=== PATIENT | female | born 1975 | race Caucasian/White ===

== ENCOUNTER 2016-07-22 09:16 | Emergency (ER) | payer MEDICAID ==
[~2016-07-22] VITALS: Ht 154.9 cm; Wt 73.5 kg
[2016-07-22 09:21] VITALS: Ht 154.9 cm; Wt 73.5 kg
[2016-07-22] MEDS ORDERED: ACETAMINOPHEN 500 MG TAB PO STA (10:08)
[2016-07-22 10:45] LABS: ADD UMIC NO; URINE BILIRUBIN (Dip) NEGATIVE (NEGATIVE); URINE BLOOD (Dip) NEGATIVE (NEGATIVE); URINE COLOR LT. YELLOW (YELLOW); URINE GLUCOSE (Dip) NEGATIVE (NEGATIVE); URINE KETONES (Dip) NEGATIVE (NEGATIVE); URINE LEUKOCYTE ESTERASE (Dip) NEGATIVE (NEGATIVE); URINE NITRITE (Dip) NEGATIVE (NEGATIVE); URINE TOTAL PROTEIN (Dip) NEGATIVE (NEGATIVE); URINE UROBILINOGEN (Dip) 0.2 E.U./dL (0.1-1.0)
[2016-07-22 10:48] LABS: ALBUMIN 4.5 g/dl (3.3-4.9); BASOPHILS % 0.1 % (0.0-2.0); CHLORIDE 101 mmol/L (97-110); EOSINOPHILS % 0.3 % (0.0-7.0); HEMATOCRIT 36.4 % (37.0-47.0); HEMOGLOBIN 12.3 g/dl (12.0-16.0); LYMPHOCYTES # 1.8 10^3/ul (0.8-2.9); LYMPHOCYTES % 15.5 % (15.0-51.0); MEAN CORPUSCULAR HEMOGLOBIN 30.2 pg (29.0-33.0); MEAN CORPUSCULAR HGB CONC 33.9 g/dl (32.0-37.0); MEAN PLATELET VOLUME 8.6 fl (7.4-10.4); MONOCYTE # 0.8 10^3/ul (0.3-0.9); NEUTROPHIL # 8.9 10^3/ul (1.6-7.5); NEUTROPHILS % 77.1 % (39.0-77.0); PLATELET COUNT 365 10^3/UL (140-440); RED BLOOD COUNT 4.09 10^6/ul (4.20-5.40); RED CELL DISTRIBUTION WIDTH 13.6 % (11.5-14.5); UNCORRECTED WBC 11.5 10^3/ul (4.8-10.8); WHITE BLOOD COUNT 11.5 10^3/ul (4.8-10.8)
[2016-07-22 10:49] LABS: POTASSIUM 4.4 mmol/L (3.5-5.1); SODIUM 145 mmol/L (135-144)
[2016-07-22 10:51] LABS: ALANINE AMINOTRANSFERASE 24 IU/L (13-69); ALBUMIN/GLOBULIN RATIO 1.21; ALKALINE PHOSPHATASE 126 IU/L (42-121); ANION GAP 19 (8-16); ASPARTATE AMINO TRANSFERASE 23 IU/L (15-46); BILIRUBIN,INDIRECT 0.1 mg/dl (0-1.1); BILIRUBIN,TOTAL 0.1 mg/dl (0.2-1.3); BLOOD UREA NITROGEN 11 mg/dl (7-20); CARBON DIOXIDE 29 mmol/L (21-31); CREATININE 0.57 mg/dl (0.44-1.00); GLUCOSE 127 mg/dl (70-220); TOTAL PROTEIN 8.2 g/dl (6.1-8.1)
[2016-07-22 10:52] LABS: CALCIUM 9.6 mg/dl (8.4-10.2)
[2016-07-22 11:00] LABS: CONDITION 1
[2016-07-22 11:06] LABS: TROPONIN-I < 0.010 ng/ml (0.00-0.12)
--- NOTE | 2016-07-22 11:16 | RADRPT ---
PROCEDURE: XR Chest AP portable CLINICAL INDICATION: Abdominal pain TECHNIQUE: An AP portable radiograph of the chest was submitted. COMPARISON: None. FINDINGS: Support Hardware: None Cardiovascular: The cardiovascular silhouette appears unremarkable. Lung Ayala: The lung ayala appear clear with no nodule, alveolar infiltrate, for a interstitial pr ominence evident. Pleural Spaces: No pneumothorax or pleural effusion is identified. Osseous Structures: The osseous structures appear intact. Soft Tissues: The soft tissues appear generous. IMPRESSION: Unremarkable portable chest. Physician Leeanne Date Time Electronically viewed and signed by Suhail Trivedi Physician on 07/22/2016 11:15 RH/
--- NOTE | 2016-07-22 11:33 | ERD ---
ER Documentation Chief Complaint Date/Time DATE: 07/22/16 TIME: 1007 Chief Complaint CP and side pain X 2 days. HPI 41-year-old female presents to the emergency department with her family for evaluation of chest and abdominal pain. Patient is a limited historian as she is nonverbal at baseline. According to her sister, she has been having some uncertain discomfort about the abdomen and the chest for the last 2 days. The pain is very poorly described as the patient is unable to describe what is hurting her. According to the sister, she has had no shortness of breath, change in activity level, nausea vomiting diarrhea fevers or any other complaints. ROS All systems reviewed and are negative except as per history of present illness. PMhx/Soc History of Surgery: No Anesthesia Reaction: No Hx Neurological Disorder: Yes (mental retardation) Hx Respiratory Disorders: No Hx Cardiac Disorders: No Hx Psychiatric Problems: No Hx Miscellaneous Medical Probl: No Hx Alcohol Use: No Hx Substance Use: No Hx Tobacco Use: No FmHx Noncontributory for chief complaint with supportive sister at the bedside Physical Exam Vitals Vital Signs Date Time Temp Pulse Resp B/P Pulse Ox O2 Delivery O2 Flow Rate FiO2 07/22/16 09:21 98.2 131 18 157/81 99 Physical Exam GENERAL: The patient is well developed and appropriate for usual state of health in no apparent distress HEENT: Pupils equal, round, and reactive to light. EOMI. There is no scleral icterus. NECK: C-spine is soft and supple, there is no meningismus. There is no cervical lymphadenopathy. LUNGS: Clear to auscultation bilaterally. There are no rales, wheezes or rhonchi. HEART: Regular rate and rhythm, no murmurs, clicks, rubs or gallops. ABDOMEN: Soft, non-tender, non-distended. There are bowel sounds in all four quadrants. No rebound or guarding. EXTREMITIES: There is no peripheral cyanosis or edema. No focal swelling or erythema. NEURO: The patient moves all four extremities with 5/5 strength. Cranial nerves II - XII are intact. Normal gait. Alert and oriented, but nonverbal SKIN: There is no apparent rash or petechiae. HEME/LYMPHATIC: There is no evidence of excessive bruising or lymphedema. PSYCHIATRIC: The patient does not appear anxious or depressed. Result Diagram: 07/22/16 1020 07/22/16 1020 Results 24 hrs Laboratory Tests Test 07/22/16 10:20 07/22/16 10:27 Alanine Aminotransferase (ALT/SGPT) 24IU/L Albumin 4.5g/dl Albumin/Globulin Ratio 1.21 Alkaline Phosphatase 126IU/L Anion Gap 19 Aspartate Amino Transf (AST/SGOT) 23IU/L Basophils # 0.010^3/ul Basophils % 0.1% Blood Urea Nitrogen 11mg/dl Calcium Level 9.6mg/dl Carbon Dioxide Level 29mmol/L Chloride Level 101mmol/L Creatinine 0.57mg/dl Direct Bilirubin 0.00mg/dl Eosinophils # 0.010^3/ul Eosinophils % 0.3% Globulin 3.70g/dl Glucose Level 127mg/dl Hematocrit 36.4% Hemoglobin 12.3g/dl Indirect Bilirubin 0.1mg/dl Lipase 68U/L Lymphocytes # 1.810^3/ul Lymphocytes % 15.5% Mean Corpuscular Hemoglobin 30.2pg Mean Corpuscular Hemoglobin Concent 33.9g/dl Mean Corpuscular Volume 89.0fl Mean Platelet Volume 8.6fl Monocytes # 0.810^3/ul Monocytes % 7.0% Neutrophils # 8.910^3/ul Neutrophils % 77.1% Nucleated Red Blood Cells # 0.010^3/ul Nucleated Red Blood Cells % 0.0/100WBC Platelet Count 53023^3/UL Potassium Level 4.4mmol/L Red Blood Count 4.0910^6/ul Red Cell Distribution Width 13.6% Sodium Level 145mmol/L Total Bilirubin 0.1mg/dl Total Protein 8.2g/dl Troponin I < 0.010ng/ml White Blood Count 11.510^3/ul Urine Bilirubin NEGATIVE Urine Clarity CLEAR Urine Color LT. YELLOW Urine Glucose NEGATIVE% Urine Hemoglobin NEGATIVE Urine Ketones NEGATIVE Urine Leukocyte Esterase NEGATIVE Urine Nitrite NEGATIVE Urine Specific [place] 1.020 Urine Total Protein NEGATIVE Urine Urobilinogen 0.2 E.U./dL Urine pH 8.0 Current Medications Medications (Trade) Dose Ordered Sig/Marlyn Route PRN Reason Start Time Stop Time Status Last Admin Dose Admin Acetaminophen (Tylenol Tab) 1,000 mg ONCE STAT PO 07/22/16 10:08 07/22/16 10:09 DC 07/22/16 10:16 Procedures/MDM Patient was taken to a room, seen and evaluated. Comfort measures were initiated. Diagnostic tests were ordered and reviewed. 3 LEAD RHYTHM STRIP: Normal sinus rhythm without ectopy EK lead EKG reviewed by myself: Normal Sinus Rhythm Normal [place] and intervals No ST elevation, depression, or T wave inversion Impression: Normal EKG RADIOLOGY: reviewed with the radiologist REEVALUATION: Patient remained comfortable and well-appearing MEDICAL DECISION MAKIN-year-old female nonverbal patient presents to the emergency department with questionable chest and abdominal pain of uncertain etiology. At this time, patient has no evidence of acute cardiac disease, infection, appendicitis or other high-risk intra-abdominal issues. She has a benign abdominal examination with low risk lab tests. She overall appears to be clinically well and appears to be appropriate for outpatient care. Departure Diagnosis: Primary Impression: Chest pain Condition: Stable Patient Instructions: Chest Pain, Uncertain Cause Additional Instructions: See your doctor for follow-up as discussed. Take a copy of your test results, if appropriate, to this follow-up visit. See your doctor or return here if your symptoms do not improve as expected. At any time, please return to the emergency department for any change or worsening in her symptoms. AMANDA RICHARDS Jul 22, 2016 11:32
== END 2016-07-22 11:38 | disposition home or self-care (01) ==
LOC: FTE 09:16
DX: R07.9 Chest pain, unspecified (principal)
CPT/HCPCS: 36415; 71010; 80053; 81003; 83690; 84484; 85025; 93005; Z7502; Z7610

== ENCOUNTER 2018-09-10 14:35 | Emergency (ER) | payer SELFPAY ==
[~2018-09-10] VITALS: Wt 69.5 kg
[2018-09-10] MEDS ORDERED: KETOROLAC 15 MG INJ IM STA (15:28)
--- NOTE | 2018-09-10 17:49 | ERD ---
ER Documentation Chief Complaint Chief Complaint LEFT FLANK PAIN X 3 DAYS HPI This is a 43-year-old female presents for bloating, and left-sided flank pain for the last 3 days, which is described as intermittent. The patient was born mute, and presents with family, majority of history was obtained from them, patient has not had a fever, no dysuria, she has never had sexual intercourse, she has no history of pregnancies, no history of STDs. Patient denies chest pain or shortness of breath ROS All systems reviewed and are negative except as per history of present illness. Allergies Allergies: Coded Allergies: No Known Allergy (Unverified , 09/10/18) PMhx/Soc History of Surgery: No Anesthesia Reaction: No Hx Neurological Disorder: Yes (mental retardation) Hx Respiratory Disorders: No Hx Cardiac Disorders: No Hx Psychiatric Problems: No Hx Miscellaneous Medical Probl: Yes (mute) Hx Alcohol Use: No Hx Substance Use: No Hx Tobacco Use: No Smoking Status: Never smoker Physical Exam Vitals Vital Signs Date Temp Pulse Resp B/P (MAP) Pulse Ox O2 O2 Flow FiO2 Time Delivery Rate 09/10/18 99.1 98 18 162/71 99 14:40 (101) Physical Exam Const: No acute distress Head: Atraumatic Eyes: Normal Conjunctiva ENT: Normal External Ears, Nose and Mouth. Neck: Full range of motion. No meningismus. Resp: Clear to auscultation bilaterally Cardio: Regular rate and rhythm, no murmurs Abd: Soft, non tender, non distended, no rebound or guarding normal bowel sounds Skin: No petechiae or rashes Back: No midline or flank tenderness Ext: No cyanosis, or edema Neur: Awake and alert Psych: Normal Mood and Affect Result Diagram: 09/10/18 1550 09/10/18 1550 Results 24 hrs Laboratory Tests Test 09/10/18 15:50 09/10/18 16:17 09/10/18 16:22 White Blood Count 11.6 10^3/ul Red Blood Count 4.25 10^6/ul Hemoglobin 12.5 g/dl Hematocrit 39.0 % Mean Corpuscular Volume 91.8 fl Mean Corpuscular Hemoglobin 29.4 pg Mean Corpuscular 32.1 g/dl Hemoglobin Concent Red Cell Distribution Width 13.0 % Platelet Count 334 10^3/UL Mean Platelet Volume 10.3 fl Immature Granulocytes % 0.600 % Neutrophils % 65.3 % Lymphocytes % 22.2 % Monocytes % 10.4 % Eosinophils % 1.2 % Basophils % 0.3 % Nucleated Red Blood Cells % 0.0 /100WBC Immature Granulocytes # 0.070 10^3/ul Neutrophils # 7.6 10^3/ul Lymphocytes # 2.6 10^3/ul Monocytes # 1.2 10^3/ul Eosinophils # 0.1 10^3/ul Basophils # 0.0 10^3/ul Nucleated Red Blood Cells # 0.0 10^3/ul Sodium Level 140 mmol/L Potassium Level 4.2 mmol/L Chloride Level 101 mmol/L Carbon Dioxide Level 30 mmol/L Anion Gap 9 Blood Urea Nitrogen 14 mg/dl Creatinine 0.57 mg/dl Est Glomerular Filtrat > 60 mL/min Rate mL/min Glucose Level 107 mg/dl Calcium Level 10.1 mg/dl Total Bilirubin 0.1 mg/dl Direct Bilirubin 0.00 mg/dl Indirect Bilirubin 0.1 mg/dl Aspartate Amino 24 IU/L Transf (AST/SGOT) Alanine 20 IU/L Aminotransferase (ALT/SGPT) Alkaline Phosphatase 136 IU/L Total Protein 8.7 g/dl Albumin 4.7 g/dl Globulin 4.00 g/dl Albumin/Globulin Ratio 1.17 POC Beta HCG, Qualitative NEGATIVE Urine Color YELLOW Urine Clarity SLIGHTLY CLOUDY Urine pH 6.0 Urine Specific [place] 1.017 Urine Ketones NEGATIVE mg/dL Urine Nitrite NEGATIVE mg/dL Urine Bilirubin NEGATIVE mg/dL Urine Urobilinogen NEGATIVE mg/dL Urine Leukocyte Esterase NEGATIVE [place]/ul Urine Microscopic RBC 0 /HPF Urine Microscopic WBC 3 /HPF Urine Calcium Oxalate Crystals FEW /HPF Urine Mucus FEW /HPF Urine Hemoglobin NEGATIVE mg/dL Urine Glucose NEGATIVE mg/dL Urine Total Protein NEGATIVE mg/dl Current Medications Medications Dose Sig/Marlyn Start Time Status Last (Trade) Ordered Route PRN Stop Time Admin Dose Reason Admin Ketorolac 15 mg ONCE STAT 09/10/18 DC 09/10/18 Tromethamine IM 15:28 17:33 (Toradol) 09/10/18 15:39 Procedures/MDM 43-year-old female presents for evaluation of flank pain, exam reveals a well-appearing nontoxic female in no acute distress, labs were overall unremarkable, she remained afebrile and hemodynamic stable in the ED, her CT abdomen pelvis was negative for acute findings, urinalysis was also negative for signs of infection, discussed findings with patient and family, at discharge pat ient was in no acute distress per Departure Diagnosis: Primary Impression: Flank pain Condition: Stable Patient Instructions: Flank Pain, Uncertain Cause HANY EDWARDS MD Sep 10, 2018 17:49
[2018-09-10 18:27] VITALS: BP 152/66; PULSE 72; RESP 18
== END 2018-09-10 18:29 | disposition home or self-care (01) ==
LOC: FTE 14:35
DX: R10.9 Unspecified abdominal pain (principal)
CPT/HCPCS: 74176; 80053; 81001; 81025; 85025; 96372; 99285; J1885; 81003